=== PATIENT | male | born 1995 | race Caucasian/White ===

== ENCOUNTER 2017-04-14 13:49 | Emergency (ER) | payer MEDICAID ==
[~2017-04-14] VITALS: Ht 182.9 cm; Wt 131.1 kg
--- NOTE | 2017-04-14 14:10 | NUR ---
BIB [facility] FROM WORK, PATIENT WAS STANDING WHILE SYNCOPE EPISODE OCCURED, WITNESSES STATED PATIENT MAY HAVE HAD HEAD IMPACT DURING FALL, PLACED ON MONITOR AND MD AT BEDSIDE UPON ARRIVAL, VERBALLY RESPONSIVE, A/O X4, STATES THIS HAS HAPPENED MULTIPLE TIMES IN THE PAST MONTH,
[2017-04-14] MEDS ORDERED: IV SET PRIMARY 1 EA INFUS.SET MC ONE (14:26)
[2017-04-14] MEDS ORDERED: IV NS 0.9% 1,000 ML ONE (14:26)
[2017-04-14] MEDS ORDERED: IV NS 0.9% 1,000 ML BAG IV ONE (14:30)
[2017-04-14 14:36] LABS: BASOPHILS # (AUTO) 0.1 /CMM (0.0-0.2); EOSINOPHILS # (AUTO) 0.3 /CMM (0.0-0.7)
--- NOTE | 2017-04-14 14:37 | NUR ---
IV FLUID ONGOING ORDERED
[2017-04-14 14:38] LABS: HEMATOCRIT 45 % (39-51); HEMOGLOBIN 15.5 g/dL (13.5-17.5); LYMPHOCYTES # (AUTO) 2.4 /CMM (0.8-4.8); LYMPHOCYTES % (AUTO) 27.8 % (20.0-44.0); MEAN CORPUSCULAR HEMOGLOBIN 29 PG (26.0-33.0); MEAN CORPUSCULAR HGB CONC 34 g/dl (31.0-36.0); MEAN CORPUSCULAR VOLUME 85 fL (80-96); MONOCYTES # (AUTO) 0.6 /CMM (0.1-1.30); NEUTROPHILS # (AUTO) 5.2 /CMM (1.8-8.9); NEUTROPHILS % (AUTO) 61.2 % (43.0-81.0); PLATELET COUNT (AUTO) 208 /CMM (150-450); RED BLOOD CELL COUNT(AUTO) 5.37 MIL/uL (4.5-6.0); WHITE BLOOD COUNT (AUTO) 8.6 K/uL (4.3-11.0)
[2017-04-14 14:40] LABS: CALCIUM, SERUM 8.8 mg/dL (8.5-10.1); CARBON DIOXIDE 26 mmol/L (21-32); CHLORIDE 105 mmol/L (98-107); CREATININE 0.9 mg/dL (0.6-1.3); GLUCOSE 144 mg/dL (74-106); POTASSIUM 3.7 mmol/L (3.5-5.1); SODIUM SERUM 139 mmol/L (136-145); UREA NITROGEN, BLOOD 14 mg/dL (7-18)
[2017-04-14 15:11] VITALS: BP 138/80
--- NOTE | 2017-04-14 15:11 | NUR ---
IV removed. Catheter intact and site benign. Pressure and 4x4 applied to site. No bleeding noted.
--- NOTE | 2017-04-14 15:11 | NUR ---
Patient discharged to home in stable condition. Written and verbal after care instructions given. Patient verbalizes understanding of instruction.
[2017-04-14 15:39] LABS: TROPONIN I < 0.017 ng/mL (0.00-0.056)
== END 2017-04-14 15:12 | disposition home or self-care (01) ==
LOC: ER 13:51
DX: E86.0 Dehydration (principal); R55 Syncope and collapse; J45.909 Unspecified asthma, uncomplicated
CPT/HCPCS: 36415; 71010; 80048; 84484; 85025; 93005; 96360; 99285; A4606; J7030; Z7610